=== PATIENT | female | born 1965 | race Caucasian/White ===

== ENCOUNTER 2022-09-09 15:14 | Outpatient (REF) | payer OTHER, SELFPAY ==
[2022-09-10 05:30] LABS: CT PCR NOT DETECTED (Not Detect.); NG PCR NOT DETECTED (Not Detect.)
[2022-09-10 12:24] LABS: BV Int Neg Control Negative (Negative); BV Int Pos Control Positive (Positive)
[2022-09-12 01:57] LABS: HPV mRNA E6/E7 rflx Not Detected (Not Detected)
== END 2022-09-09 15:15 | disposition home or self-care (01) ==
LOC: HO.LNP 15:14
PROVIDERS: Visit Provider Advanced Practice Midwife
DX: Z01.419 Encounter for gynecological examination (general) (routine) without abnormal findings (principal); Z11.51 Encounter for screening for human papillomavirus (HPV)
CPT/HCPCS: 87480; 87491; 87510; 87591; 87624; 87660; 88142

== ENCOUNTER 2023-09-12 14:44 | Outpatient (REF) | payer OTHER, MEDICAID, SELFPAY ==
[2023-09-13 13:40] LABS: BV Int Neg Control Negative (Negative); BV Int Pos Control Positive (Positive)
== END 2023-09-12 14:45 | disposition home or self-care (01) ==
LOC: HO.LNP 14:44
PROVIDERS: Visit Provider Advanced Practice Midwife
DX: N95.2 Postmenopausal atrophic vaginitis (principal)
CPT/HCPCS: 87480; 87510; 87660

== ENCOUNTER 2023-09-12 14:44 | Outpatient (AMB) | payer OTHER, MEDICAID, SELFPAY ==
--- NOTE | 2023-09-12 15:06 | A.OFFVIS_ITS ---
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 She is sexually active with her and has no worries about STDs she does complain of vaginal dryness and sometimes burning when she is intercourse she says it powell when he ejaculates. Again she has 0 worries about STDs. She has not had a mammogram in a long time and is reluctant to have her breasts squeezed in the mammogram She does a bitch Waylon wash her vagina and vulva with either dial or [place] soap and is extremely reluctant to give that up. PFSH Surgical History Hx of section Family History Maternal Grandmother Colon cancer Social History Alcohol intake: current Alcohol intake frequency: holidays/special occasions only Female Reproductive History Menstrual Age of Menarche: 13 control method: none Total pregnancies: 4 Full term: 2 Number of Living Children: 2 Ab spontaneous: 2 Date of last pap smear: 09/10/22 (negative) Physical Exam Vital Signs: BMI result Body Mass Index 28.1 Const General: healthy appearing, comfortable, no acute distress, well developed and alert Nutritional Appearance: average body habitus Orientation/consciousness: patient oriented x3 Limitations: no limitations HEENT Head: Yes normocephalic Neck Neck: Yes normal visual inspection Chest Chest palpation & inspection: normal inspection of the chest Breast/axilla inspection: normal inspection of the breasts and normal inspection of the axillae Breast/axilla palpation: normal palpation of the breasts and normal palpation of the axillae Resp Effort & Inspection: normal respiratory effort GI Inspection: Yes normal to inspection, No Abdominal wall edema and No distended Palpation (GI): Soft to palpation and nontender Other: Atrophic changes noted externally and internally. Vagina pink moist cervix is nulliparous long close thick mobile uterus is midposition to anteverted mobile nontender adnexa not enlarged nontender patient has history of C-sections. Good tone with Kegel. General: Yes bladder normal to palpation External Female Exam: normal external appearance and normal appearance of the urethra Speculum Exam - Vagina: normal appearance of the vagina, normal palpation and normal vaginal discharge Speculum Exam - Cervix: normal appearance of the cervix, normal palpation and nontender Bimanual exam- vagina & uterus: normal bimanual exam, normal palpation, uterine size normal, bladder normal to palpation, consistency normal, normal palpation, uterine mobility normal, uterine shape normal, No Cervical tenderness present, non-tender and no cervical motion tenderness Bimanual Exam- Adnexa, other: normal adnexae, no masses, normal and No adnexal tenderness Neuro General: patient oriented x3 Assessment & Plan Assessment & Plan (1) Breast cancer screening: Code(s): Z12.39 - Encounter for other screening for malignant neoplasm of breast (2) Cervical cancer screening: Comment: hx of abnormal.1999. 09/09/22 Pap equals satisfactory negative with atrophic changes negative HPV. Code(s): Z12.4 - Encounter for screening for malignant neoplasm of cervix (3) Well woman exam with routine gynecological exam: Code(s): Z01.419 - Encounter for gynecological examination (general) (routine) without abnormal findings (4) Perimenopausal atrophic vaginitis: Code(s): N95.2 - Postmenopausal atrophic vaginitis Plan -----Discussed in this visit the following: healthy balanced diet, regular and consistent exercise, getting recommended health screens, doing the best she can for her particular health concerns, kegel exercises, pap smear screening and followup recommendations, mammography screening and SBE, normal changes in cycles in her life stage--- .---Discussed normal changes that happen premenapausally, perimenapausally, and postmenopausally, and ways to handle them. Discussed the normal variation, and the range of experiences that women experience. Discussed nutrition, health, need for exercise, both weight-bearing and aerobic. Also discussed the normal changes that happen with vaginal mucosal thinning and sensitivity, and simple more natural ways of handling these challenges. ---extensive discussion about ?care for down there? and handout given including that there is no need for soap the actual mechanisms of friction contributing to entry in to the urethra of bacteria during intercourse how to maintain normal christian and the vagina and postmenopausal atrophic changes that are naturally occurring and possible remedies suggested the usual [id number] water-based lubricants, and strongly recommend no soap. did discuss that it might be possible to consider vaginal Estrace cream, however she should get screened for breast cancer 1st, as she has not had a mammogram in all very long time. She was not particularly interested in that today, but I have ordered her mammogram in any case and strongly recommend that she get screening and reviewed the value of early detection. She says she may try coconut oil because she has heard of other women having good success with it and its natural and has no side effects. 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 She did except the care for the down there handout and will share with her daughters. Orders: Orders MM tomosynthesis screening BI Today N95.2 - Postmenopausal atrophic vaginitis, Z01.419 - Encounter for gynecological examination (general) (routine) without abnormal findings, Z12.31 - Encounter for screening mammogram for malignant neoplasm of breast, Z12.39 - Encounter for other screening for malignant neoplasm of breast, Z12.4 - Encounter for screening for malignant neoplasm of cervix Bacterial Vaginosis Panel Today N89.8 - Other specified noninflammatory disorders of vagina Coding Level of Care Code Est Pt Prev Care 40-64y(84964) Diagnoses Breast cancer screening Z12.39 Cervical cancer screening Z12.4 Well woman exam with routine gynecological exam Z01.419 Perimenopausal atrophic vaginitis N95.2
[2023-09-12 15:10] VITALS: BP 126/76; BMI 28.1
== END 2023-09-12 16:14 | disposition home or self-care (01) ==
PROVIDERS: Visit Provider Advanced Practice Midwife
DX: Z01.419 Encounter for gynecological examination (general) (routine) without abnormal findings (principal); N95.2 Postmenopausal atrophic vaginitis
CPT/HCPCS: 99396

== ENCOUNTER 2024-11-24 14:52 | Outpatient (AMB) | payer OTHER, MEDICAID, SELFPAY ==
--- NOTE | 2024-11-24 14:50 | A.OFFVIS_ITS ---
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 She is not interested creams or anything and does not bother with vaginal lubricant. she has not had a mammogram in a while and she found it painful and uncomfortable when she had it done so she has been reluctant to go back so we did talk about the importance of screening today. She feels she is up-to-date on all of her other screening with her primary care provider who is based in the [place] system. She believes her last mammogram was at [facility] at part of the [facility] system. She had her 2 daughters 18 and 21 years ago at [facility] with Dr. Moser. She has no issues at all today she tries to take care of herself and and exercise. [facility] Surgical History Hx of section Family History Maternal Grandmother Colon cancer Social History Alcohol intake: current Alcohol intake frequency: holidays/special occasions only Female Reproductive History Menstrual Age of Menarche: 13 control method: none Total pregnancies: 4 Full term: 2 Ab spontaneous: 2 Date of last pap smear: 09/10/22 (negative) History of abnormal pap smear: No Physical Exam Vital Signs: Last Vital Signs BP 128/80 11/24/24 14:56 BMI result Body Mass Index 27.3 Const General: healthy appearing, comfortable, no acute distress, well developed and alert Nutritional Appearance: average body habitus Orientation/consciousness: patient oriented x3 Limitations: no limitations HEENT Head: Yes normocephalic Neck Neck: Yes normal visual inspection Chest Chest palpation & inspection: normal inspection of the chest Breast/axilla inspection: normal inspection of the breasts and normal inspection of the axillae Breast/axilla palpation: normal palpation of the breasts and normal palpation of the axillae Resp Effort & Inspection: normal respiratory effort GI Inspection: Yes normal to inspection, No Abdominal wall edema and No distended Palpation (GI): Soft to palpation and nontender Other: Patient had no field advisor concerns and fact declined pelvic exam as there was she is up-to-date Pap smears and she has no discharge she has absolutely is about STDs External Female Exam: normal external appearance and normal appearance of the urethra Neuro General: patient oriented x3 Results Reviewed Results Reviewed: Name: Julia Reynoso Age/Sex: 57/F Attending: Sunita Joiner CNM : 1965 Submitted by: Sunita Joiner CNM Copies to: MR #: [id number] Status: DEP REF Collected: 09/09/22 Location: [facility] Received: 09/10/22 Interpretation Satisfactory for evaluation. Atrophic. Blood. Negative for intraepithelial lesion or malignancy. HPV mRNA E6/E7: NOT DETECTED This assay detects E6/E7 viral messenger RNA (mRNA) from 14 high-risk HPV types (16, 18, 31, 33, 35, 39, 45, 51, 52, 56, 58, 59, 66, 68) HPV testing performed by [facility], [place], [place]. See reference laboratory pion of the EMR for entire report. Clinical Information LMP: No menses Previous PAP test: 03/11/18, WNL Material Received ThinPrep-Cervical Electronically Signed By: LIBRA Poole (ASCP) 09/26/22 0843 The Pap Test is a screening procedure with the inherent possibility of both false negative and false positive results. Results should be interpreted in the context of historic and current clinical findings. Reliability of the Pap Test is enhanced by performing the test on a regular repetitive basis. Patient: Julia Reynoso Age/Sex: 57/F MR#: [id number] Page 1 of 1 Assessment & Plan Assessment & Plan (1) Well woman exam with routine gynecological exam: Code(s): Z01.419 - Encounter for gynecological examination (general) (routine) without abnormal findings Category: Medical (2) Cervical cancer screening: Comment: hx of abnormal.2000. 09/09/22 Pap equals satisfactory negative with atrophic changes negative HPV. 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 She is not interested creams or anything and does not bother with vaginal lubricant. she has not had a mammogram in a while and she found it painful and uncomfortable when she had it done so she has been reluctant to go back so we did talk about the importance of screening today. She feels she is up-to-date on all of her other screening with her primary care provider who is based in the [place] system. She believes her last mammogram was at [facility] at part of the [facility] system. She had her 2 daughters 18 and 21 years ago at [facility] with Dr. Moser. She has no issues at all today she tries to take care of herself and and exercise. I ordered a mammogram for her and also gave her the printed orders in case she decides to go elsewhere for her mammogram. She will be seeing her primary care provider in January. She maybe asking her for a dermatology referral to get some moles checked that she has had for quite a while she also has some sun damage freckles upper chest. Orders: Orders MM tomosynthesis screening BI Today N95.2 - Postmenopausal atrophic vaginitis, Z01.419 - Encounter for gynecological examination (general) (routine) without abnormal findings, Z12.31 - Encounter for screening mammogram for malignant neoplasm of breast, Z12.39 - Encounter for other screening for malignant neoplasm of breast, Z12.4 - Encounter for screening for malignant neoplasm of c ervix Coding Level of Care Code Est Pt Prev Care 40-64y(77219) Diagnoses Well woman exam with routine gynecological exam Z01.419 Cervical cancer screening Z12.4 Breast cancer screening Z12.39 Perimenopausal atrophic vaginitis N95.2
[2024-11-24 14:56] VITALS: BP 128/80; BMI 27.3
== END 2024-11-24 16:00 | disposition home or self-care (01) ==
PROVIDERS: PCP Internal Medicine; Visit Provider Advanced Practice Midwife
DX: Z01.419 Encounter for gynecological examination (general) (routine) without abnormal findings (principal); N95.2 Postmenopausal atrophic vaginitis
CPT/HCPCS: 99396; 99459